=== PATIENT | male | born 1935 | race African-American/Black ===

== ENCOUNTER 2022-02-18 16:59 | Emergency (ER) | payer OTHER ==
[~2022-02-18] VITALS: Ht 180.3 cm; Wt 74.0 kg
[2022-02-18] MEDS ORDERED: IOHEXOL-350 100 ML BOTTLE ONE (17:32)
[2022-02-18 19:00] LABS: EOSINOPHILS % 2.7 % (0.0-5.0); HEMATOCRIT. 29.8 % (42.0-52.0); HEMOGLOBIN. 10.2 g/dL (14.0-18.0); LYMPHOCYTES % 24.7 % (20.0-50.0); MEAN CORPUSCULAR HEMOGLOBIN 32.3 pg (28.0-32.0); MEAN CORPUSCULAR VOLUME 94.2 fL (80.0-94.0); MEAN PLATELET VOLUME 9.2 fl (7.4-10.4); MONOCYTES % 9.7 % (2.0-8.0); NEUTROPHILS % 61.9 % (40.0-76.0); PLATELET 224 x1000/uL (130-400); RED BLOOD CELL COUNT 3.17 mill/uL (4.7-6.1); RED CELL DISTRIBUTION WIDTH 15.4 % (11.6-14.6)
[2022-02-18 19:04] LABS: CHLORIDE 104 mEq/L (98-107)
[2022-02-18 19:13] LABS: ETHANOL BLOOD < 10 mg/dL
[2022-02-18] MEDS: ASPIRIN 81MG TABLET PO NR (21:00)
[2022-02-18] MEDS ORDERED: ASPIRIN 81MG TABLET PO NR (23:30)
[2022-02-18 23:33] VITALS: BP 116/75
== END 2022-02-18 23:52 | disposition short-term general hospital (02) ==
LOC: ER 16:59 → CANBEDREQ 23:59
DX: G93.40 Encephalopathy, unspecified (principal); E78.00 Pure hypercholesterolemia, unspecified; I10 Essential (primary) hypertension; E11.9 Type 2 diabetes mellitus without complications; Z20.822 Contact with and (suspected) exposure to COVID-19
CPT/HCPCS: 36415; 70450; 70496; 70498; 71045; 80053; 80320; 82962; 84484; 85025; 87426; 93005; 99291; C9803; Q9967; G0480